=== PATIENT | male | born 1940 | race Caucasian/White ===

== ENCOUNTER 2019-01-24 13:39 | Emergency (ER) | payer MEDICARE, OTHER ==
[~2019-01-24] VITALS: Ht 195.6 cm; Wt 179.6 kg
[2019-01-24] MEDS ORDERED: ondansetron 4mg rapidly disintigrating tab PO ONE (16:15)
[2019-01-24] MEDS ORDERED: HYDROcodone/acetaminophen 10/325mg tab PO ONE (16:15)
[2019-01-24] MEDS ORDERED: HYDR-4353 PO (17:33)
[2019-01-24] MEDS ORDERED: IBUP-1984 PO (17:33)
[2019-01-24 17:44] VITALS: BP 113/55
== END 2019-01-24 17:54 | disposition home or self-care (01) ==
LOC: ER 13:42
DX: S72.431A Displaced fracture of medial condyle of right femur, initial encounter for closed fracture (principal); Z79.899 Other long term (current) drug therapy; W18.39XA Other fall on same level, initial encounter; Y93.89 Activity, other specified; Y92.89 Other specified places as the place of occurrence of the external cause; Y99.8 Other external cause status
CPT/HCPCS: 29505; 73564; 99284

== ENCOUNTER 2021-01-02 14:18 | Emergency (ER) | payer OTHER, MEDICARE ==
[~2021-01-02] VITALS: Ht 195.6 cm; Wt 170.4 kg
[~2021-01-02 14:18] MED LIST: CHOL20002 PO; FURO20TA4 PO; GABA-534 PO; INSU100C4 SQ; INSU100V9 SQ; LIRA0.6P2 SUBCUT; LISI20TA28 PO; LOVA40TA2 PO; METF-900 PO; MULT-1085 PO; WARF6TAB49 PO
[2021-01-02 14:39] VITALS: BP 118/69
[2021-01-02 16:11] LABS: BASOPHILS % (AUTO) 0.3 % (0-1); EOSINOPHILS % (AUTO) 0.4 % (0-6); HEMATOCRIT 34.8 % (42.0-52.0); HEMOGLOBIN 11.5 g/dl (14.0-17.9); LYMPHOCYTES # (AUTO) 0.7 X10'3 (1.1-4.8); LYMPHOCYTES % (AUTO) 9.7 % (21-51); MEAN CORPUSCULAR HEMOGLOBIN 29.1 PG (27.0-31.0); MEAN CORPUSCULAR HGB CONC 32.9 g/dL (33.0-36.5); MEAN CORPUSCULAR VOLUME 88.3 FL (78-98); MEAN PLATELET VOLUME 9.5 FL (7.4-10.4); MONOCYTES # (AUTO) 0.6 X10'3 (0-0.9); MONOCYTES % (AUTO) 8.4 % (2-12); NEUTROPHILS # (AUTO) 5.7 X10'3 (1.8-7.7); NEUTROPHILS % (AUTO) 81.2 % (42-75); PLATELET COUNT 181 X10'3 (140-440); RED BLOOD COUNT 3.94 X10'6 (4.70-6.10); RED CELL DISTRIBUTION WIDTH 16.6 % (11.5-14.5); WHITE BLOOD COUNT 7.1 X10'3 (4.5-11.0)
[2021-01-02 16:38] LABS: ALANINE AMINOTRANSFERASE 27 U/L (12-78); ALBUMIN 3.3 G/DL (3.4-5.0); ALBUMIN/GLOBULIN RATIO 0.8 (1.1-1.5); ALKALINE PHOSPHATASE 72 IU/L (46-116); ANION GAP 9 (8-16); ASPARTATE AMINO TRANSFERASE 21 U/L (10-37); BILIRUBIN,TOTAL 0.5 MG/DL (0.1-1.0); BLOOD UREA NITROGEN 42 MG/DL (7-18); BUN/CREATININE RATIO 15.7 (5.4-32.0); CALCIUM 8.9 MG/DL (8.5-10.1); CHLORIDE 106 MMOL/L (99-107); CREATININE 2.67 MG/DL (0.60-1.10); GLUCOSE 227 MG/DL (70-104); POTASSIUM 5.6 MMOL/L (3.5-5.1); SODIUM 140 MMOL/L (135-145); TOTAL CARBON DIOXIDE 25.3 MMOL/L (24-32); TOTAL PROTEIN 7.7 G/DL (6.4-8.2); eGFR 23 ML/MIN
[2021-01-02] MEDS ORDERED: albuterol 2.5 MG/3 ML nebule CONTNEB PRN (20:25)
[2021-01-02] MEDS ORDERED: ceFAZolin 1000mg inj IR ONE (20:25)
[2021-01-02] MEDS ORDERED: calcium chloride 100 MG/1 ML inj IV ONE (20:25)
[2021-01-02] MEDS ORDERED: ceFAZolin 2gm in dextrose, iso 50 ML IV ONE (20:35)
[2021-01-02] MEDS: SODIUM ZIRCONIUM CYCLOSILICATE 10 GM POWD.PACK PO SCH (21:00)
[2021-01-02] MEDS ORDERED: SEMA1PEN3 (21:18)
[2021-01-02] MEDS ORDERED: CEPH-585 PO (21:51)
--- NOTE | 2021-01-02 23:07 | NUR ---
Pharmacy contacted for medications
[2021-01-02] MEDS ORDERED: calcium chloride inj. 1,000 MG in NS 100ml IV soln (110ml) IV ONE (23:10)
[2021-01-02] MEDS ORDERED: calcium chloride inj. 1,000 MG in normal saline 100ml IV soln 90 ML IV ONE (23:12)
[2021-01-03] MEDS: SODIUM ZIRCONIUM CYCLOSILICATE 10 GM POWD.PACK PO SCH (00:46)
== END 2021-01-03 05:43 | disposition home or self-care (01) ==
LOC: ER 14:19
DX: I13.0 Hypertensive heart and chronic kidney disease with heart failure and stage 1 through stage 4 chronic kidney disease, or unspecified chronic kidney disease (principal); E11.22 Type 2 diabetes mellitus with diabetic chronic kidney disease; N18.9 Chronic kidney disease, unspecified; N17.9 Acute kidney failure, unspecified; E87.6 Hypokalemia; L03.113 Cellulitis of right upper limb; R06.02 Shortness of breath; M19.90 Unspecified osteoarthritis, unspecified site; Z87.442 Personal history of urinary calculi; Z98.890 Other specified postprocedural states; Z79.2 Long term (current) use of antibiotics; Z79.4 Long term (current) use of insulin; Z79.899 Other long term (current) drug therapy
CPT/HCPCS: 36415; 71045; 80053; 83880; 84484; 85025; 93005; 94640; 94644; 94760; 96365; 96368; 99285; A7015; J0690; J3490